=== PATIENT | male | born 1985 | race African-American/Black ===

== ENCOUNTER 2018-10-06 21:35 | Emergency (ER) | payer OTHER ==
--- NOTE | 2018-10-06 21:42 | PDOC ---
Rapid Medical Evaluation Time Seen by Provider: 10/06/18 21:40 Medical Evaluation: 10/06/18 21:40 I have performed a brief in-person evaluation of this patient. The patient presents with a chief complaint of: penile discharge. (-)HIV testing 1 month ago refusing now Pertinent physical exam findings: deferred I have ordered the following: gc, rpr The patient will proceed to the ED for further evaluation. Discharge Disposition - Diagnosis STD (male) - Referrals - Patient Instructions - Post Discharge Activity
[2018-10-06] MEDS ORDERED: AZITHROMYCIN 500 MG TABLET PO ONE (21:43)
[2018-10-06 21:49] VITALS: BP 132/84; PULSE 62; TEMP 98; BMI 25.1
--- NOTE | 2018-10-06 22:14 | PDOC ---
History of Present Illness - General Chief Complaint: Penile Drainage Stated Complaint: STD SCREENING/PAIN Time Seen by Provider: 10/06/18 21:40 - History of Present Illness Initial Comments: 10/06/18 22:17 33-year-old male with penile discharge times one month states he would like to be treated for gonorrhea and chlamydia. He's refused syphilis and HIV testing Past History - Past Medical History Home Medications: Ambulatory Orders NK [No Known Home Medication] 10/06/18 - Suicide/Smoking/Psychosocial Hx Smoking History: Current every day smoker Number of Cigarettes Smoked Daily: 20 Information on smoking cessation initiated: Yes Hx Alcohol Use: No Drug/Substance Use Hx: No Review of Systems - Review of Systems : Yes: Discharge *Physical Exam - Vital Signs Last Vital Signs Temp Pulse Resp BP Pulse Ox 98 F 62 20 132/84 100 10/06/18 21:46 10/06/18 21:46 10/06/18 21:46 10/06/18 21:46 10/06/18 21:46 - Physical Exam Comments: 10/06/18 22:16 HEAD: NC/AT EYES: Conjuntiva clear MS: Full ROM in all joints without edema NEUROLOGIC: No gross sensory or motor deficits, NVID SKIN: Normal color and temperature no lesions or rashes Medical Decision Making - Medical Decision Making 10/06/18 22:15 The risks of STDs were discussed. Patient only wants to be treated for gonorrhea and chlamydia and he will follow-up with his doctor for further evaluation and treatment for syphilis and gonorrhea *DC/Admit/Observation/Transfer Diagnosis at time of Disposition: STD (male) - Discharge Dispostion Disposition: HOME Condition at time of disposition: Stable Decision to Admit order: No - Referrals Referrals: [facility] Providers [Provider Group] - Patient Instructions Printed Discharge Instructions: How to Detect and Treat STDs, Chlamydia: The Silent STD Additional Instructions: Tonight treated for gonorrhea and chlamydia. You have refused HIV and syphilis testing. Please follow-up with the [facility] for further evaluation and treatment options. - Post Discharge Activity
[2018-10-06] MEDS ORDERED: AZITHROMYCIN 500 MG TABLET ONE (22:33)
== END 2018-10-06 22:50 | disposition home or self-care (01) ==
LOC: JERFT 21:35
DX: A64 Unspecified sexually transmitted disease (principal)
CPT/HCPCS: 36415; 86593; 87491; 87591; 96372; 99281-25